=== PATIENT | male | born 1980 | race Caucasian/White ===

== ENCOUNTER 2019-01-22 09:49 | Emergency (ER) | payer OTHER ==
[~2019-01-22] VITALS: Ht 170.2 cm; Wt 74.8 kg
--- NOTE | 2019-01-22 10:10 | NUR ---
BIB SELF C/O URETHRAL DISCHARGE WITH MINIMAL PAIN. AOX3. NO C/O SOB OR CHEST PAIN.
--- NOTE | 2019-01-22 10:30 | NUR ---
AT BEDSIDE FOR EVAL.
--- NOTE | 2019-01-22 10:45 | NUR ---
U/A COLLECTED AND SENT TO THE LAB.
[2019-01-22] MEDS ORDERED: CEFTRIAXONE 500 MG VIAL IM ONE (11:00)
[2019-01-22] MEDS ORDERED: AZITHROMYCIN 250 MG TABLET PO ONE (11:00)
[2019-01-22] MEDS ORDERED: CEFTRIAXONE 500 MG VIAL ONE (11:54)
[2019-01-22] MEDS ORDERED: LIDOCAINE 1% INJ 50 ML MDV IJ ONE (11:55)
[2019-01-22] MEDS ORDERED: AZITHROMYCIN 250 MG TABLET ONE (12:18)
--- NOTE | 2019-01-22 12:29 | NUR ---
Patient discharged to home in stable condition. Written and verbal after care instructions given. Patient verbalizes understanding of instruction.
[2019-01-22 12:31] VITALS: BP 122/70
== END 2019-01-22 12:31 | disposition home or self-care (01) ==
LOC: ER 09:49
DX: A64 Unspecified sexually transmitted disease (principal); F17.200 Nicotine dependence, unspecified, uncomplicated; Z60.2 Problems related to living alone
CPT/HCPCS: 87491; 87591; 96372; 99283; J0696; J3490